=== PATIENT | female | born 1955 | race Caucasian/White ===

== ENCOUNTER → 2017-02-23 12:06 | Outpatient (CLI) | payer OTHER ==
[2015-04-02 12:44] VITALS: BMI 28.7
[~2017-02-23 12:06] MED LIST: TYLENOL PM1 TAB PO
== END | disposition home or self-care (01) ==
LOC: D.US 12:06
DX: R09.89 Other specified symptoms and signs involving the circulatory and respiratory systems (principal)

== ENCOUNTER → 2017-03-20 15:27 | Outpatient (CLI) | payer OTHER ==
[2015-04-02 12:44] VITALS: BMI 28.7
== END | disposition home or self-care (01) ==
LOC: D.CT 15:27
DX: I65.23 Occlusion and stenosis of bilateral carotid arteries (principal)

== ENCOUNTER → 2017-03-31 21:01 | Outpatient (CLI) | payer OTHER ==
[2015-04-02 12:44] VITALS: BMI 28.7
== END | disposition home or self-care (01) ==
LOC: D.MAMMO 11:45
DX: Z12.31 Encounter for screening mammogram for malignant neoplasm of breast (principal)

== ENCOUNTER → 2017-05-16 09:43 | Outpatient (CLI) | payer OTHER ==
[2015-04-02 12:44] VITALS: BMI 28.7
== END | disposition home or self-care (01) ==
LOC: D.MRI 09:43
DX: G45.9 Transient cerebral ischemic attack, unspecified (principal)

== ENCOUNTER → 2017-05-23 08:36 | Outpatient (CLI) | payer OTHER ==
[2015-04-02 12:44] VITALS: BMI 28.7
== END | disposition home or self-care (01) ==
LOC: D.CT 08:36
DX: G45.1 Carotid artery syndrome (hemispheric) (principal); I67.2 Cerebral atherosclerosis

== ENCOUNTER → 2018-03-27 10:23 | Outpatient (CLI) | payer OTHER ==
[2015-04-02 12:44] VITALS: BMI 28.7
== END | disposition home or self-care (01) ==
LOC: D.RT 03-23 08:00 → D.RAD 03-23 08:45 → D.RT 10:23
DX: R06.02 Shortness of breath (principal); Z12.31 Encounter for screening mammogram for malignant neoplasm of breast

== ENCOUNTER → 2018-11-02 14:09 | Outpatient (CLI) | payer OTHER ==
[2015-04-02 12:44] VITALS: BMI 28.7
== END | disposition home or self-care (01) ==
LOC: D.CT 14:09
DX: R10.9 Unspecified abdominal pain (principal); R19.7 Diarrhea, unspecified; K92.1 Melena; K57.92 Diverticulitis of intestine, part unspecified, without perforation or abscess without bleeding